=== PATIENT | female | born 1950 | race Caucasian/White ===

== ENCOUNTER → 2016-12-06 | Outpatient (CLI) | payer BC ==
[~2016-12-06] MED LIST: ALLERGY RELIEF10 M6 PO; ASPIRIN EC81 M1 PO; COUMADIN7.5 MG PO; FISH OIL 1,2001 EAC2 PO; FLEXERIL10 MG PO; LISINOPRIL20 MG PO; METOPROLOL SUCC50 MG PO; MONTELUKAST SOD10 MG PO; MULTI-VITAMIN1 EAC1 PO; NEURONTIN100 MG PO; NIACIN500 M2 PO; OXTELLAR XR600 MG PO; TAGAMET200 MG PO; TOPROL XL PO; ULTRAM PO; VOLTAREN50 MG PO
--- NOTE | ~2016-12-06 | CR63 ---
[facility] A Service of [facility] RADIOLOGY TEXT RESULTS PATIENT: ANTELMO JOHNSON LOCATION: [facility] : 54 UNIT #: [id number] AGE: [address]: Tomy Gallegos MD SEX: F ORDER DR: [id number] [facility] [address] [place], [place] [address] [id number] O MR#: [id number] Acc #: [id number] NAME: ANTELMO JOHNSON : 1950 SEX: F STUDY DATE/TIME: 12/06/2016 12:58 UNIT: [facility] ROOM: STUDY DESCRIPTION: CR Chest 2 View Attending Physician: Tomy Gallegos M.D. Referring Physician: Tomy Gallegos M.D. Ordering Physician: Tomy Gallegos M.D. Primary Care Physician: Generic Doctor Not In System MEDICAL IMAGING REPORT This report is preliminary unless electronic signature is present EXAM Chest PA and lateral 12/06/2016 HISTORY Preop left total knee revision. PA and lateral views of the chest are obtained. FINDINGS The cardiovascular configuration of the chest appears normal. Lungs are clear. Single fixation screw is identified within the right humeral head. CONCLUSION No active disease. Dictated by... Nate Giron M.D. THIS IS AN ELECTRONICALLY VERIFIED REPORT Nate Giron M.D. at 12/07/2016 8:00 AM HARI/joellen TD: 12/06/2016 15:37 JOB #: [id number] MEDICAL IMAGING REPORT COPY
--- NOTE | ~2016-12-06 | CO ---
Unit #: [id number] #: [id number] Patient: ANTELMO JOHNSON [id number] [address] [place], [place] [address] [id number] O MR#: [id number] NAME: ANTELMO JOHNSON ROOM: Age: 66 Sex: F Admission Date: 12/06/2016 : 1950 Attending Physician: Tomy Gallegos M.D. Primary Care Physician: Generic Doctor Not In System Consultation Date: 12/06/2016 CONSULTATION REPORT REVISED REPORT REASON FOR CONSULTATION Preoperative medical evaluation prior to revision left total knee arthroplasty scheduled by Dr. Gallegos for 12/20/2016. HISTORY OF PRESENT ILLNESS The patient is a 66-year-old female who presents to preprocedural screening for the reason as indicated above. The patient complains of left knee pain and has been evaluated by Dr. Gallegos, scheduled for revision left total knee. She denies chest, arm, neck, back, jaw pain or pressure. The patient denies dyspnea on exertion, orthopnea, paroxysmal nocturnal dyspnea and sleep apnea. She denies lightheadedness, dizziness, other than occasional lightheadedness which she states is associated with blood pressure medications. She denies presyncope, syncope, palpitations. She denies myocardial infarction, congestive heart failure, CVA, TIA, diabetes, kidney disease. She has been evaluated by Dr. Polo and has a letter of preop cardiac clearance for upcoming knee surgery with acceptable risk. PAST MEDICAL HISTORY 1. Osteoarthritis. 2. Hypertension. 3. Allergic rhinitis. 4. Gastritis. 5. History of "irregular heart rate resolved with metoprolol. 6. History of trigeminal neuralgia. 7. Neuropathy bilateral feet. 8. Hyperlipidemia. 9. History of compression fracture L2-3 with chronic back pain. 10. History of right shoulder pain so rotator cuff repair. PAST SURGICAL HISTORY 1. Left total knee 2004. 2. Open Bennett fundoplication. 3. Breast biopsies x3. All negative per patient report. 4. Tonsillectomy. 5. Right rotator cuff repair. 6. Ganglion cyst excision on right wrist. 7. Bilateral lower extremity vein ablations x2. 8. Cardiac cath x2. SOCIAL HISTORY The patient denies tobacco use, ETOH use and illicit drug us. Unit #: [id number] #: [id number] Patient: ANTELMO JOHNSON FAMILY HISTORY Mother: Dementia. Father: Diabetes mellitus and history of heart surgery. The patient denies a personal and family history of complications to anesthesia. ALLERGIES Solu-Medrol and prednisone cause severe stomach pain. CURRENT MEDICATIONS 1. Lisinopril 20 mg p.o. daily. 2. Toprol-XL 75 mg p.o. daily and 50 mg p.o. at night. 3. Metoprolol succinate 50 mg p.o. at bedtime. 4. Neurontin 200 mg p.o. at bedtime. 5. Diclofenac sodium EC 50 mg p.o. b.i.d. 6. Aspirin EC 81 mg p.o. daily. 7. Tagamet 200 mg p.o. daily. 8. Niacin 500 mg p.o. daily. 9. Fish oil 1200 mg softgel one p.o. daily. 10. Multivitamin one p.o. daily. 11. Oxtellar XR 800 mg p.o. at bedtime. 12. Montelukast sodium 10 mg p.o. at bedtime. 13. Flexeril 10 mg p.o. t.i.d. p.r.n. muscle spasm. 14. Allergy relief 10 mg p.o. daily. REVIEW OF SYSTEMS Chronic right shoulder pain status post rotator cuff repair, pain on the top of both feet secondary to severe arthritis, left knee pain and chronic low back pain. A 10-point review of systems is conducted and otherwise negative except as indicated under history of present illness above. PHYSICAL EXAMINATION GENERAL APPEARANCE: A 66-year-old female awake, alert, in no acute distress. VITAL SIGNS: Temperature 98.2. Heart rate 65. Respiratory rate 16. Blood pressure 168/79. Oxygen saturation 96% on room air. HEENT: Atraumatic, normocephalic. Sclerae anicteric. No discharge from eyes, ears or nares. LYMPHATIC: No preauricular, postauricular, tonsillar, submental, anterior posterior cervical adenopathy. ENDOCRINE: No thyromegaly, thyroid nodules or tenderness. RESPIRATORY: Clear to auscultation all lea bilaterally without wheezes, rhonchi or rales. CARDIOVASCULAR: S1, S2. Regular rate and rhythm without murmur or rub. GASTROINTESTINAL: Bowel sounds positive x4. Soft, nontender, nondistended. EXTREMITIES: 2+ bilateral lower extremity edema. Calves soft and nontender. NEUROLOGIC: Alert and oriented x3. Speech clear. Cranial nerves grossly intact. Follows commands. DIAGNOSTIC STUDIES LABORATORY: WBC 7.9, hemoglobin 12.9, hematocrit 39.5, platelets 206,000, sed rate 29. Sodium 138, potassium 4.2, chloride 100, CO2 29, glucose 107, BUN 19, creatinine 0.6, calcium 9.4, AST 24, ALT 25, alkaline phosphatase 121, bilirubin total 0.4, total protein 6.8, albumin 4.1. Unit #: [id number] #: [id number] Patient: ANTELMO JOHNSON Urinalysis: Leukocyte esterase 1+, nitrite negative, bacteria negative, WBC 0 to 2. Urine culture not indicated. PT 10.3, INR 1.0. CRP 1.8. IMAGING: Two view chest x-ray report pending at this time. CARDIOVASCULAR: Date of study, 10/06/2016, normal ECG. 2D spectral and color flow Doppler conclusion: Mild concentric LVH with normal ejection fraction of 65% and no evidence of diastolic dysfunction. No significant valve dysfunction. Mild pulmonary hypertension with estimated pulmonary artery pressures 40 mmHg. IMPRESSION 1. The patient is a 66-year-old female who presents to preprocedural screening for preoperative medical evaluation prior to left total knee revision. The patient's [place] revised cardiac risk index is equal to 0.4%. This represents the patient's perioperative risk of cardiac , fatal or nonfatal myocardial infarction, cardiopulmonary arrest, arrhythmia and/or pulmonary edema. This has been discussed in detail with the patient. She wishes to proceed with surgery as scheduled at this time. Again, this patient has been evaluated and given preoperative cardiac clearance by Dr. 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 2. Hypertension. Blood pressure is elevated today. We will continue current medications and monitor postoperatively. 3. Allergic rhinitis. Continue antihistamines postoperatively. 4. History of gastritis, likely add H2 zen postoperatively. 5. Osteoarthritis. 6. History of "irregular" heart rate, resolved with metoprolol. We will recommend the patient be placed on bus driver/monitor on the orthopaedic floor and continue metoprolol. 7. History of trigeminal neuralgia. Continue home dose of Oxtellar XR. 8. Neuropathy of both feet. Continue home dose of Neurontin. The patient will be on fall precautions and work with PT/OT. 9. Hyperlipidemia. Fish oil will be held for routine orders of Dr. Gallegos. 10. History of compression fracture L2-3 with chronic low back pain. Analgesic management per Dr. Gallegos. 11. History of right shoulder pain status post rotator cuff repair. The patient is stable at this time. She has been advised to work with Physical Therapy in lifting, pushing, pulling techniques postoperatively. Thank you for allowing us to participate in the care of this patient. We will kindly follow her for postop medical management pending order of Dr. Gallegos. Dictated by... Jana Ferrer A.P.R.N. for Andrew Goldbreg/moni TD: 12/07/2016 07:08 JOB #: [id number] Unit #: [id number] #: [id number] Patient: ALEXANTELMO CONSULTATION REPORT X Jana Ferrer APRN X CONSULTATION REPORT
[2016-12-06 12:12] LABS: HEMATOCRIT 39.5 % (35.0-45.0); HEMOGLOBIN 12.9 gm/dL (12.0-16.0); MEAN CELL VOLUME 86.2 FL (83-96); MEAN CORPUSCULAR HEMOGLOBIN 28.2 PG (28-34); MEAN CORPUSCULAR HGB CONC 32.8 g/dL (30-36); MEAN PLATELET VOLUME 7.6 FL (6.5-11.5); RED BLOOD COUNT 4.58 X10e (3.90-5.30); RED CELL DISTRIBUTION WIDTH 13.6 % (11.0-15.5); WHITE BLOOD COUNT 7.9 X10e3 (4.0-10.5)
[2016-12-06 12:13] LABS: URINE APPEARANCE CLEAR; URINE BILIRUBIN NEG (NEG); URINE BLOOD NEG (NEG); URINE COLOR YELLOW; URINE GLUCOSE NEG (NEG); URINE KETONE NEG (NEG); URINE LEUKOCYTE ESTERASE 1+ (NEG); URINE NITRATE NEG (NEG); URINE PH 5.5 (5-8); URINE PROTEIN NEG (NEG); URINE SPECIFIC GRAVITY 1.022 (1.003-1.035); URINE UROBILINOGEN 0.2 MG/DL (NEG)
[2016-12-06 12:20] LABS: U HYALINE CASTS AUWI 0-2 /[LPF]; URBCS1 AUWI 0-2 /[HPF] (0-2); URINE BACTERIA AUWI NEG (NEGATIVE); URINE SQUAMOUS EPITHELIAL CELL OCC /[HPF]
[2016-12-06 12:23] LABS: PROTHROMBIN TIME (PATIENT) 10.3 SECONDS (9.6-11.5)
[2016-12-06 12:24] LABS: CULTURE INDICATED? NO; URINE SOURCE CLEAN CATCH
[2016-12-06 12:56] LABS: ALBUMIN SERUM 4.1 g/dL (3.5-5.0); ALKALINE PHOSPHATASE 121 U/L (32-92); ALT (SGPT) 25 U/L (10-40); AST (SGOT) 24 U/L (10-42); BILIRUBIN,TOTAL 0.4 mg/dL (0.2-2.0); BLOOD UREA NITROGEN 19 mg/dL (9-23); BUN/CREATININE RATIO 31.66; CALCIUM SERUM 9.4 mg/dL (8.4-10.2); CARBON DIOXIDE 29 mmol/L (22-31); CHLORIDE 100 mmol/L (100-111); CREATININE SERUM 0.6 mg/dL (0.6-1.4); GLOM FILT RATE Estimated ABOVE60 mL/min (>60); GLUCOSE FASTING 107 mg/dL (70-110); POTASSIUM 4.2 mmol/L (3.5-5.1); PROTEIN TOTAL SERUM 6.8 g/dL (6.0-8.3); SODIUM 138 mmol/L (135-145)
== END | disposition home or self-care (01) ==
LOC: CAMB 11:37
PROVIDERS: Orthopaedic Surgery
DX: Z01.818 Encounter for other preprocedural examination (principal); M23.52 Chronic instability of knee, left knee; K21.9 Gastro-esophageal reflux disease without esophagitis; I10 Essential (primary) hypertension; J30.9 Allergic rhinitis, unspecified; M17.12 Unilateral primary osteoarthritis, left knee; G50.0 Trigeminal neuralgia; G62.9 Polyneuropathy, unspecified; E78.5 Hyperlipidemia, unspecified; M48.56XD Collapsed vertebra, not elsewhere classified, lumbar region, subsequent encounter for fracture with routine healing; M25.511 Pain in right shoulder
CPT/HCPCS: 36415; 71020; 80053; 81003; 85027; 85610; 85652; 86140; 86850; 86900; 86901; 87070

== ENCOUNTER 2016-12-20 08:16 | Inpatient (IN) | payer BC ==
--- NOTE | ~2016-12-20 | DS ---
Unit #: [id number] #: [id number] Patient: ANTELMO SUTTON [id number] [address] [address] [id number] I MR#: [id number] NAME: ANTELMO SUTTON ROOM: 454 Age: 66 Sex: F Admission Date: 12/20/2016 : 1950 Discharge Date: 12/22/2016 Attending Physician: Tomy Gallegos M.D. Referring Physician: Tomy Gallegos M.D. DISCHARGE SUMMARY REASON FOR ADMISSION Left total knee revision. DISCHARGE DIAGNOSIS Left total knee revision. HOSPITAL COURSE On 12/20/2016, Ms. Sutton was admitted for left total knee flexion instability. She underwent a left total knee revision. She tolerated the procedure well. She was transported to the 4th floor, where she underwent physical therapy, medical management, and anticoagulation therapy. She is doing well and is ready to be discharged. DISPOSITION Stable at discharge. Discharged home. DISCHARGE MEDICATIONS Medications on discharge include routine home medications in addition to Coumadin 7.5 mg p.o. daily and Ultram 50 mg 1 to 2 tablets p.o. q.4 hours p.r.n. for pain. FOLLOWUP INSTRUCTIONS Ms. Sutton is going to be discharged home. The patient will need a PT and INR every Tuesday and . Physical therapy is needed for active range of motion, strengthening, and progressive ambulation. The patient is on a walker for 4 weeks and a cane for an additional 2 weeks. Followup appointment with Dr. Gallegos in 6 weeks. Please call our office for that appointment date and time. Dictated by... Pranav Dailey for Andrew Neal/love TD: 12/23/2016 01:28 JOB #: [id number] Unit #: [id number] #: [id number] Patient: ANTELMO SUTTON DISCHARGE SUMMARY Page 1 of 1 X Blessing Kinney DISCHARGE SUMMARY
--- NOTE | ~2016-12-20 | OR ---
Unit #: [id number] #: [id number] Patient: ANTELMO JOHNSON [id number] [address] [facility]. [place], [place] [address] [id number] MR#: [id number] NAME: ANTELMO JOHNSON ROOM: 454 Date of Procedure: 12/20/2016 Admission Date: 12/20/2016 Surgeon: Tomy Gallegos M.D. : 1950 Attending Physician: Tomy Gallegos M.D. Referring Physician: Tomy Gallegos M.D. OPERATIVE REPORT PREOPERATIVE DIAGNOSIS Instability of left total knee. POSTOPERATIVE DIAGNOSIS Instability of left total knee. PROCEDURE PERFORMED Revision of left total knee. ASSISTANTS Blessing Kinney and Porfirio Wiggins. ANESTHESIA Adductor canal block plus general. ESTIMATED BLOOD LOSS About 200 mL. INDICATIONS FOR PROCEDURE This is a 66-year-old lady, who has had a left total knee in the past. She has gone on to develop instability of the knee and she comes in today for revision surgery. DESCRIPTION OF PROCEDURE The patient was brought to the holding room, given 2 g of Kefzol. This will be continued postop, but discontinued within 23 hours the start time of surgery. The patient was given an adductor canal block, brought back to the operating room, given a general anesthetic. Tourniquet was placed around the left thigh. The left leg was prepped and draped in a sterile fashion. Tourniquet was inflated to 300. The previous anterior skin incision was used. Subcu dissected away and a medial arthrotomy was performed. The patient then had cultures obtained. The fluid was quite clear. The previous polyethylene was removed from the tibial tray and then the femoral component was loosened quite easily and removed. There was a fair amount of bone loss under the femoral component with a very thick membrane. The tibia was subluxed anteriorly. It was also removed easily and then the cement was extracted from the tibia. The drill and reamers were used on the tibia up to a 12 x 75. The conical reamer was used for the M.B.T. sleeve and then the broaches were used up to a 53 for the metaphyseal sleeve. The tibia was sized at a 2.5. The femur was sized at a 3. We then reamed the canal up to a 14 x 75. The conical reamer was used for the [place] femoral sleeve and then the chamfer cuts Unit #: [id number] #: [id number] Patient: ANTELMO JOHNSON and box cut were made for the TC3 component. The trial was assembled with a 5 degree bolt and a 14 x 75 trial stem, a 40 mm trial sleeve, a size 3 TC3 femoral component. The knee was reduced and we found that the 15 mm insert gave excellent stability in extension and flexion. The patella was inspected. It had some minor wear, but was not loose, so it was left in place. We then removed all the trials. The real components were opened and assembled. Two packages of cement were mixed. The tibia was inserted first cementing under the tray only. Then, the femur was impacted cementing under the femoral component only. We then determined that the 15 insert was the appropriate thickness, so size 3, 15 mm thick TC3 rotating platform insert was placed in the tibia and the knee was reduced. The tourniquet was released. Hemostasis was obtained and then the wound was closed using 0 Ethibond in the arthrotomy, 0 and 2-0 Vicryl in the subcutaneous, and radha in the skin. A drain was used. Dictated by... Andrew Neal/love TD: 12/20/2016 22:58 JOB #: [id number] OPERATIVE REPORT Page 1 of 1 X Tomy Gallegos MD X PROCEDURE OPERATIVE NOTE
[~2016-12-20 08:16] MED LIST changes: -COUMADIN7.5 MG PO; -ULTRAM PO
[2016-12-20 09:07] LABS: PROTHROMBIN TIME (PATIENT) 10.5 SECONDS (9.6-11.5)
[2016-12-21 05:05] LABS: HEMATOCRIT 33.4 % (35.0-45.0); HEMOGLOBIN 10.6 gm/dL (12.0-16.0)
[2016-12-21 05:26] LABS: INR 1.2; PROTHROMBIN TIME (PATIENT) 13.1 SECONDS (9.6-11.5)
[2016-12-21 07:12] LABS: BUN/CREATININE RATIO 21.42; CALCIUM SERUM 8.2 mg/dL (8.4-10.2); CREATININE SERUM 0.7 mg/dL (0.6-1.4); GLOM FILT RATE Estimated 91.6 mL/min (>60); POTASSIUM 4.4 mmol/L (3.5-5.1)
[2016-12-22 03:24] LABS: HEMATOCRIT 32.3 % (35.0-45.0); HEMOGLOBIN 10.4 gm/dL (12.0-16.0)
[2016-12-22 03:34] LABS: INR 1.6; PROTHROMBIN TIME (PATIENT) 16.7 SECONDS (9.6-11.5)
[2016-12-22 03:45] LABS: BUN/CREATININE RATIO 18.33; CREATININE SERUM 0.6 mg/dL (0.6-1.4); GLOM FILT RATE Estimated 96.3 mL/min (>60); MAGNESIUM 2.2 mg/dL (1.6-3.0); POTASSIUM 4.2 mmol/L (3.5-5.1)
[2016-12-22] MEDS ORDERED: ULTRAM PO (11:07)
[2016-12-22] MEDS ORDERED: COUMADIN7.5 MG PO (11:07)
== END 2016-12-22 14:58 | disposition home health service (06) | DRG 467 ==
LOC: CSUR 08:16 → CPACUOF 09:15 → C4B 14:05
PROVIDERS: Nurse Practitioner; Orthopaedic Surgery
PROC: 0SPD0JZ Removal of Synthetic Substitute from Left Knee Joint, Open Approach (ICD-10-PCS; 2016-12-20)
PROC: 0SRD0J9 Replacement of Left Knee Joint with Synthetic Substitute, Cemented, Open Approach (ICD-10-PCS; principal; 2016-12-20 10:00)
DX: T84.023A Instability of internal left knee prosthesis, initial encounter (principal); D62 Acute posthemorrhagic anemia; I10 Essential (primary) hypertension; Y79.2 Prosthetic and other implants, materials and accessory orthopedic devices associated with adverse incidents; G50.0 Trigeminal neuralgia; E66.9 Obesity, unspecified; E78.5 Hyperlipidemia, unspecified; Z79.82 Long term (current) use of aspirin; Z68.38 Body mass index [BMI] 38.0-38.9, adult; M19.90 Unspecified osteoarthritis, unspecified site; I49.9 Cardiac arrhythmia, unspecified
CPT/HCPCS: 80048; 83735; 85014; 85018; 85610; 87070; 87075; 87205; 94760; 94762; 97110; 97116; 97162; 97165; 97530; 97535; C1776; J0131; J0171; J0330; J0690; J0735; J1170; J1650; J1885; J2250; J2270; J2370; J2405; J2710; J2795; J3010